=== PATIENT | male | born 1980 | race Caucasian/White ===

== ENCOUNTER 2018-10-18 01:21 | Inpatient (IN) | payer OTHER ==
[~2018-10-18] VITALS: Ht 172.7 cm; Wt 77.3 kg
[2018-10-18 01:40] LABS: BASO # 0.1 x10^3/uL (0.0-0.2); BASO % 1 % (0-3); EOS # 0.2 x10^3/uL (0.0-0.7); EOS % 2 % (0-3); HEMATOCRIT 41.5 % (39.0-53.0); HEMOGLOBIN 14.1 g/dL (13.0-17.5); LYMPH # 3.2 x10^3/uL (1.0-4.8); LYMPH % 29 % (24-48); MEAN CORPUSCULAR HEMOGLOBIN 30 pg (25-35); MEAN CORPUSCULAR HGB CONC 34 g/dL (31-37); MEAN CORPUSCULAR VOLUME 87 fL (79-100); MONO # 0.7 x10^3/uL (0.0-1.1); MONO % 6 % (0-9); NEUT # 6.9 x10^3uL (1.8-7.7); NEUT % 63 % (31-73); PLATELET COUNT 177 x10^3/uL (140-400); RED BLOOD COUNT 4.76 x10^6/uL (4.30-5.70); RED CELL DISTRIBUTION WIDTH 12.9 % (11.5-14.5)
[2018-10-18] MEDS ORDERED: IV NORMAL SALINE 1000ML BAG 1,000 ML IV SCH (01:45)
[2018-10-18] MEDS ORDERED: NITROGLYCERIN SUBLINGUAL 0.4 MG BOTTLE OF 25. SL PRN (01:45)
[2018-10-18 01:57] LABS: ALBUMIN 3.5 g/dL (3.4-5.0); ALBUMIN/GLOBULIN RATIO 0.9 (1.0-1.7); CALCIUM 8.4 mg/dL (8.5-10.1); CREATININE 1.4 mg/dL (0.7-1.3); MAGNESIUM 1.8 mg/dL (1.8-2.4); TOTAL BILIRUBIN 0.3 mg/dL (0.2-1.0); TOTAL PROTEIN 7.2 g/dL (6.4-8.2)
[2018-10-18 02:00] LABS: POTASSIUM 2.8 mmol/L (3.5-5.1)
[2018-10-18] MEDS ORDERED: MORPHINE SULFATE 4 MG/ML VIAL. IV ONE (02:00)
[2018-10-18] MEDS ORDERED: HEPARIN for IV BOLUS 10,000 UNIT/10 ML VIAL. IV PRN (02:30)
[2018-10-18] MEDS ORDERED: HEPARIN for IV BOLUS 10,000 UNIT/10 ML VIAL. IV ONE (02:30)
[2018-10-18] MEDS ORDERED: HEPARIN 25,000UTS/500ML PREMIX 500 ML IV PRN (02:30)
[2018-10-18] MEDS ORDERED: INSULIN REGULAR 100 UNIT/ML 3ML VIAL. IV ONE (02:30)
[2018-10-18] MEDS: POTASSIUM CHLORIDE 10MEQ 100 ML IV SCH ×2 (02:37→03:30)
--- NOTE | 2018-10-18 02:39 | PHYS DOC ---
Past Medical History Past Medical History: GERD, High Cholesterol, Other Additional Past Medical Histor: SVT Past Surgical History: Other Additional Past Surgical Histo: Cardiac Ablation Alcohol Use: Occasionally Drug Use: None Adult General Chief Complaint Chief Complaint: CHEST PAIN HPI HPI Patient is a 38-year-old male who presents via EMS with report of acute onset of chest pain about an hour prior to his arrival. Patient states that initially he felt a hot flash became nauseated and felt his heart rate jumped very high. He states that once the heart rate jumped up he developed chest pain. Pain is located in the left side of his chest and states that at its worst it was a 9 out of 10. Patient was given a total of 2 doses of sublingual nitroglycerin and now he states pain is about a 5 out of 10. He does indicate that he was nauseated but had no vomiting. Patient did have a cardiac ablation back in April. He states that nitroglycerin had improved his pain. Pain is worsened with exertion. Review of Systems Review of Systems Constitutional: Denies fever or chills [] Respiratory: Denies cough or shortness of breath [] Cardiovascular: No additional information not addressed in HPI [] GI: Denies abdominal pain. Complains of nausea without vomiting [] Integument: Denies rash or skin lesions [] Neurologic: Denies headache, focal weakness or sensory changes [] All other systems were reviewed and found to be within normal limits, except as documented in this note. Current Medications Current Medications Current Medications Medications (Trade) Dose Ordered Sig/Chris Start Time Stop Time Status Last Admin Dose Admin Heparin Sodium (Porcine) (Heparin Sodium) 1,950 unit PRN Q6HRS PRN 10/18/18 02:30 Heparin Sodium/ Dextrose 500 ml @ 0 mls/hr CONT PRN 10/18/18 02:30 10/18/18 02:44 18.5 MLS/HR Insulin Human Regular (HumuLIN R VIAL) 5 unit 1X ONCE 10/18/18 02:30 10/18/18 02:31 DC 10/18/18 02:41 5 UNIT Lorazepam (Ativan) 2 mg STK-MED ONCE 10/18/18 02:23 10/18/18 02:24 DC Morphine Sulfate (Morphine Sulfate) 2 mg 1X ONCE 10/18/18 02:00 10/18/18 02:01 DC 10/18/18 01:58 2 MG Nitroglycerin (Nitrostat) 0.4 mg PRN Q5MIN PRN 10/18/18 01:45 10/19/18 01:44 10/18/18 01:58 0.4 MG Potassium Chloride/Water 100 ml @ 100 mls/hr Q1H 10/18/18 02:30 10/18/18 04:29 10/18/18 02:37 100 MLS/HR Sodium Chloride 1,000 ml @ 1,000 mls/hr Q1H 10/18/18 01:45 10/18/18 02:44 DC 10/18/18 01:57 1,000 MLS/HR Allergies Allergies Allergies Coded Allergies Type Severity Reaction Last Updated Verified No Known Drug Allergies 10/18/18 No Physical Exam Physical Exam Constitutional: Well developed, well nourished, no acute distress, non-toxic appearance. [] HENT: Normocephalic, atraumatic, bilateral external ears normal, oropharynx moist, no oral exudates, nose normal. [] Eyes: PERRLA, EOMI, conjunctiva normal, no discharge. [] Neck: Normal range of motion, no tenderness, supple, no stridor. [] Cardiovascular: Regular rate and rhythm[] Lungs & Thorax: Bilateral breath sounds clear to auscultation [] Abdomen: Bowel sounds normal, soft, no tenderness. [] Skin: Warm, dry, no erythema, no rash. [] Extremities: No tenderness, no cyanosis, no clubbing, ROM intact, no edema. [] Neurologic: Alert and oriented X 3, no focal deficits noted. [] Current Patient Data Vital Signs Vital Signs Date Time Temp Pulse Resp B/P (MAP) Pulse Ox O2 Delivery O2 Flow Rate FiO2 10/18/18 01:58 97 Room Air 10/18/18 01:58 113 137/86 10/18/18 01:21 98.6 17 98.6 Lab Values Laboratory Tests Test 10/18/18 01:30 White Blood Count 11.0 x10^3/uL (4.0-11.0) Red Blood Count 4.76 x10^6/uL (4.30-5.70) Hemoglobin 14.1 g/dL (13.0-17.5) Hematocrit 41.5 % (39.0-53.0) Mean Corpuscular Volume 87 fL (79-100) Mean Corpuscular Hemoglobin 30 pg (25-35) Mean Corpuscular Hemoglobin Concent 34 g/dL (31-37) Red Cell Distribution Width 12.9 % (11.5-14.5) Platelet Count 177 x10^3/uL (140-400) Neutrophils (%) (Auto) 63 % (31-73) Lymphocytes (%) (Auto) 29 % (24-48) Monocytes (%) (Auto) 6 % (0-9) Eosinophils (%) (Auto) 2 % (0-3) Basophils (%) (Auto) 1 % (0-3) Neutrophils # (Auto) 6.9 x10^3uL (1.8-7.7) Lymphocytes # (Auto) 3.2 x10^3/uL (1.0-4.8) Monocytes # (Auto) 0.7 x10^3/uL (0.0-1.1) Eosinophils # (Auto) 0.2 x10^3/uL (0.0-0.7) Basophils # (Auto) 0.1 x10^3/uL (0.0-0.2) D-Dimer (Alina) < 0.27 ug/mlFEU Sodium Level 139 mmol/L (136-145) Potassium Level 2.8 mmol/L (3.5-5.1) *L Chloride Level 102 mmol/L (98-107) Carbon Dioxide Level 25 mmol/L (21-32) Anion Gap 12 (6-14) Blood Urea Nitrogen 19 mg/dL (8-26) Creatinine 1.4 mg/dL (0.7-1.3) H Estimated GFR (Cockcroft-Gault) 57.0 BUN/Creatinine Ratio 14 (6-20) Glucose Level 315 mg/dL (70-99) H Calcium Level 8.4 mg/dL (8.5-10.1) L Magnesium Level 1.8 mg/dL (1.8-2.4) Total Bilirubin 0.3 mg/dL (0.2-1.0) Aspartate Amino Transferase (AST) 22 U/L (15-37) Alanine Aminotransferase (ALT) 53 U/L (16-63) Alkaline Phosphatase 68 U/L (46-116) Troponin I Quantitative < 0.017 ng/mL (0.000-0.055) QK-Mek-D-Type Natriuretic Peptide 11 pg/mL (0-124) Total Protein 7.2 g/dL (6.4-8.2) Albumin 3.5 g/dL (3.4-5.0) Albumin/Globulin Ratio 0.9 (1.0-1.7) L Laboratory Tests 10/18/18 01:30 Laboratory Tests 10/18/18 01:30 EKG EKG [] Interpretation Time: EKG demonstrates sinus tachycardia with rate of 119. There is right bundle- branch block and ST abnormality/depression in leads V1 through V5. Radiology/Procedures Radiology/Procedures [] Impressions: Chest x-ray demonstrates no acute process. Course & Med Decision Making Course & Med Decision Making Pertinent Labs and Imaging studies reviewed. (See chart for details) Patient's case discussed with Dr. Mcclellan and he has reviewed EKG. He agrees with admission of patient. He also agrees with treatment with heparin protocol. He will see patient in the morning. Dragon Disclaimer Dragon Disclaimer This electronic medical record was generated, in whole or in part, using a voice recognition dictation system. Departure Departure Impression: Primary Impression: Chest pain Disposition: ADMITTED INPATIENT Admitting Physician: Jey Ramirez Condition: IMPROVED Referrals: NO PCP (PCP) Problem Qualifiers Primary Impression: Chest pain Chest pain type: unspecified Qualified Codes: R07.9 - Chest pain, unspecified ZANDRA TERRAZAS Jr. DO Oct 18, 2018 02:39
[2018-10-18] MEDS ORDERED: ONDANSETRON PF 4 MG/2 ML VIAL. IV PRN (02:45)
[2018-10-18] MEDS ORDERED: MORPHINE SULFATE 4 MG/ML VIAL. IV PRN (02:45)
[2018-10-18] MEDS: IV NORMAL SALINE 1000ML BAG 1,000 ML IV SCH ×2 (02:45→09:25)
[2018-10-18] MEDS ORDERED: IV NORMAL SALINE 500ML BAG 500 ML IV ONE (03:15)
[2018-10-18 03:40] VITALS: BP 112/64
[2018-10-18] MEDS ORDERED: ATOR20TA58 PO (04:07)
[2018-10-18] MEDS ORDERED: OMEP40CA5 PO (04:07)
[2018-10-18 07:00] VITALS: BP 126/68
--- NOTE | 2018-10-18 07:45 | RAD ---
PROCEDURE: PORTABLE CHEST 1V CLINICAL INDICATION: soa, chest pain COMPARISON: None FINDINGS: Heart is normal in size. Prominent bilateral bronchovascular markings are seen. No focal consolidation. No pneumothorax or pleural effusion. Visualized bony thorax is within normal limits. IMPRESSION: Mild Pulmonary vascular congestion or bronchitis. Electronically signed by: José Miguel Bea DO (10/18/2018 7:42 AM) [facility]
[2018-10-18 08:11] LABS: CALCIUM 8.1 mg/dL (8.5-10.1); GFR 84.1
--- NOTE | 2018-10-18 08:40 | EKG ---
[facility] [address] [place] [address] Test Date: 2018-10-18 Test Time: 01:27:07 Pat Name: RICHARD WHITTAKER Department: Room: 260 1 Gender: M Senior Reliability Engineer: : 1980 Requested By: ZANDRA TERRAZAS Order Number: [id number] Reading MD: Edgard Mcclellan MD Measurements Intervals [place] Rate: 118 P: -52 IN: 102 QRS: 23 QRSD: 148 T: 24 QT: 340 QTc: 478 Interpretive Statements SINUS TACHYCARDIA RIGHT BUNDLE BRANCH BLOCK RVH WITH REPOLARIZATION ABNORMALITY Electronically Signed On 10-18-2018 17:31:34 CDT by Edgard Mcclellan MD
[2018-10-18 09:15] LABS: CHOLESTEROL/HDL RATIO 3.2
--- NOTE | 2018-10-18 09:15 | PDOC2 ---
CARDIAC CONSULT DATE OF CONSULT Date of Consult DATE: 10/18/18 TIME: 09:14 REASON FOR CONSULT Reason for Consult: Chest pain REFERRING PHYSICIAN Referring Physician: Dr. Forrest SOURCE Source: Chart review, Patient HISTORY OF PRESENT ILLNESS HISTORY OF PRESENT ILLNESS This is a 38 yo male, with a history of PSVT s/p ablation at in March of last year by Dr. Robertson, who presented secondary to chest pressure and palpitations/elevated heart rate. Patient reports he was sitting playing video games around 11pm last night. Had a sudden onset of felling flush and felt heart beating strong and fast. When this has occurred in the past, has been able to control symptoms with breathing. Last night, palpitations/symptoms persisted began to have nausea with subsequent vomiting. Had pressure in his central chest and was diaphoretic. Slightly short of breath. HR on his watch was noted at 160. Patient decided to come to the ED as he was unable to get symptoms to resolved. Upon arrival, symptoms seemed to be subsiding. EKG upon arrival shows ST with RBBB adn LVH. No significant acute changes per review of prior EKG 12/01/2017 at . records reviewed. 12/18/17 Echo LVEF 55% Normal LV size, wall thickness and function. No regional wall motion abnormalities. RV size and function are normal. Normal chamber and dimensions Normal valve structures; no significant valvular stenosis or regurgitation. 04/04/18 Treadmill stress echo Negative for ischemia Patient was previously on metoprolol for rate control, but this was discontinued following ablation 04/11/2018. PAST MEDICAL HISTORY Cardiovascular: Hyperlipidemia, Other (PSVT s/p ablation) Pulmonary: No pertinent hx CENTRAL NERVOUS SYSTEM: Other (no pertinent positives) GI: GERD Heme/Onc: No pertinent hx Hepatobiliary: No pertinent hx Psych: No pertinent hx Musculoskeletal: Other Rheumatologic: No pertinent hx Infectious disease: No pertinent hx ENT: No pertinent hx Renal/: No pertinent hx Endocrine: No pertinent hx Dermatology: No pertinent hx PAST SURGICAL HISTORY Past Surgical History: Other (cardiac ablation ) FAMILY HISTORY Family History: Diabetes SOCIAL HISTORY Smoke: No ALCOHOL: social Drugs: None Lives: with Family CURRENT MEDICATIONS CURRENT MEDICATIONS Current Medications Medications (Trade) Dose Ordered Sig/Chris Route PRN Reason Start Time Stop Time Status Last Admin Dose Admin Nitroglycerin (Nitrostat) 0.4 mg PRN Q5MIN PRN SL CP RATING > 1/10 10/18/18 01:45 10/19/18 01:44 10/18/18 01:58 Morphine Sulfate (Morphine Sulfate) 2 mg 1X ONCE IV 10/18/18 02:00 10/18/18 02:01 DC 10/18/18 01:58 Sodium Chloride 1,000 ml @ 1,000 mls/hr Q1H IV 10/18/18 01:45 10/18/18 02:44 DC 10/18/18 01:57 Potassium Chloride/Water 100 ml @ 100 mls/hr Q1H IV 10/18/18 02:30 10/18/18 04:29 DC 10/18/18 03:30 Insulin Human Regular (HumuLIN R VIAL) 5 unit 1X ONCE IV 10/18/18 02:30 10/18/18 02:31 DC 10/18/18 02:41 Lorazepam (Ativan) 1 mg 1X ONCE IV 10/18/18 02:30 10/18/18 02:31 DC 10/18/18 02:38 Heparin Sodium (Porcine) (Heparin Sodium) 4,000 unit 1X ONCE IV 10/18/18 02:30 10/18/18 02:31 DC 10/18/18 02:41 Heparin Sodium/ Dextrose 500 ml @ 0 mls/hr CONT PRN IV SEE I/O RECORD 10/18/18 02:30 10/18/18 02:44 Sodium Chloride 1,000 ml @ 150 mls/hr Q6H40M IV 10/18/18 02:45 10/19/18 02:44 10/18/18 02:45 Sodium Chloride 500 ml @ 500 mls/hr 1X ONCE IV 10/18/18 03:15 10/18/18 04:14 DC 10/18/18 02:37 ALLERGIES ALLERGIES: Coded Allergies: No Known Drug Allergies (Unverified , 10/18/18) ROS Review of System 14 point ROS conducted with pertinent positives noted above in HPI. PHYSICAL EXAM General: Alert, Oriented X3, Cooperative, No acute distress HEENT: Atraumatic, Mucous membr. moist/pink Lungs: Clear to auscultation, Normal air movement Heart: Regular rate, Normal S1, Normal S2 Abdomen: Soft, No tenderness Extremities: No edema, Normal pulses Skin: No significant lesion Neuro: Normal speech, Sensation intact Psych/Mental Status: Mental status NL, Mood NL MUSCULOSKELETAL: No deformity VITALS VITALS Vital Signs Date Time Temp Pulse Resp B/P (MAP) Pulse Ox O2 Delivery O2 Flow Rate FiO2 10/18/18 07:00 98.3 75 18 126/68 (87) 97 Room Air 98.3 LABS Lab: Laboratory Tests Test 10/18/18 01:30 10/18/18 07:45 White Blood Count 11.0 x10^3/uL (4.0-11.0) Red Blood Count 4.76 x10^6/uL (4.30-5.70) Hemoglobin 14.1 g/dL (13.0-17.5) Hematocrit 41.5 % (39.0-53.0) Mean Corpuscular Volume 87 fL (79-100) Mean Corpuscular Hemoglobin 30 pg (25-35) Mean Corpuscular Hemoglobin Concent 34 g/dL (31-37) Red Cell Distribution Width 12.9 % (11.5-14.5) Platelet Count 177 x10^3/uL (140-400) Neutrophils (%) (Auto) 63 % (31-73) Lymphocytes (%) (Auto) 29 % (24-48) Monocytes (%) (Auto) 6 % (0-9) Eosinophils (%) (Auto) 2 % (0-3) Basophils (%) (Auto) 1 % (0-3) Neutrophils # (Auto) 6.9 x10^3uL (1.8-7.7) Lymphocytes # (Auto) 3.2 x10^3/uL (1.0-4.8) Monocytes # (Auto) 0.7 x10^3/uL (0.0-1.1) Eosinophils # (Auto) 0.2 x10^3/uL (0.0-0.7) Basophils # (Auto) 0.1 x10^3/uL (0.0-0.2) D-Dimer (Alina) < 0.27 ug/mlFEU Sodium Level 139 mmol/L (136-145) 143 mmol/L (136-145) Potassium Level 2.8 mmol/L (3.5-5.1) 4.0 mmol/L (3.5-5.1) Chloride Level 102 mmol/L (98-107) 108 mmol/L (98-107) Carbon Dioxide Level 25 mmol/L (21-32) 25 mmol/L (21-32) Anion Gap 12 (6-14) 10 (6-14) Blood Urea Nitrogen 19 mg/dL (8-26) 12 mg/dL (8-26) Creatinine 1.4 mg/dL (0.7-1.3) 1.0 mg/dL (0.7-1.3) Estimated GFR (Cockcroft-Gault) 57.0 84.1 BUN/Creatinine Ratio 14 (6-20) Glucose Level 315 mg/dL (70-99) 111 mg/dL (70-99) Calcium Level 8.4 mg/dL (8.5-10.1) 8.1 mg/dL (8.5-10.1) Magnesium Level 1.8 mg/dL (1.8-2.4) Total Bilirubin 0.3 mg/dL (0.2-1.0) Aspartate Amino Transf (AST/SGOT) 22 U/L (15-37) Alanine Aminotransferase (ALT/SGPT) 53 U/L (16-63) Alkaline Phosphatase 68 U/L (46-116) Troponin I Quantitative < 0.017 ng/mL (0.000-0.055) 0.018 ng/mL (0.000-0.055) OM-Wxh-X-Type Natriuretic Peptide 11 pg/mL (0-124) Total Protein 7.2 g/dL (6.4-8.2) Albumin 3.5 g/dL (3.4-5.0) Albumin/Globulin Ratio 0.9 (1.0-1.7) Heparin Anti-Xa Act, Unfractionated 0.56 IU/mL (0.30-0.70) Thyroid Stimulating Hormone (TSH) 0.763 uIU/mL (0.358-3.74) ASSESSMENT/PLAN ASSESSMENT/PLAN 1. Chest pain/pressure; troponin series normal- AMI ruled out. EKG ST with RBBB , LVH. Most probably related to #2 2. PSVT s/p ablation 04/11/18. TSH WNL. Has maintained ST/SR since admission 3. RBBB, chronic; underwent treadmill stress echo to 03/2018; no evidence of ischemia. EKG without significant changes by comparison to study 12/01/2017 at 4. Hyperlipidemia; lipids on goal 5. Hypokalemia; replaced 6. JULIANO; resolved in IVFs Recommendations Discontinue heparin gtt Echo to assess LV systolic function Monitor lytes, replace as warranted Monitor telemetry for arrhythmias Add metoprolol for rate control Continue ASA Patient to follow up with EP at [facility] APRN Oct 18, 2018 09:15
--- NOTE | 2018-10-18 10:47 | PDOC1 ---
History and Physical Date of Admission Date of Admission DATE: 10/18/18 TIME: 10:47 Identification/Chief Complaint Chief Complaint SEEN IN ER 38-year-old male who presents via EMS with report of acute onset of chest pain about an hour prior to his arrival. became nauseated and felt his heart rate jumped very high. He states that once the heart rate jumped up he developed chest pain. Pain is located in the left side of his chest and states that at its worst it was a 9 out of 10. Patient was given a total of 2 doses of sublingual nitroglycerin and now he states pain is about a 5 out of 10. 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 Pulmonary: No pertinent hx CENTRAL NERVOUS SYSTEM: Other (no pertinent positives) GI: GERD Heme/Onc: No pertinent hx Hepatobiliary: No pertinent hx Psych: No pertinent hx Musculoskeletal: Other Rheumatologic: No pertinent hx Infectious disease: No pertinent hx ENT: No pertinent hx Renal/: No pertinent hx Endocrine: No pertinent hx Dermatology: No pertinent hx PAST SURGICAL HISTORY Past Surgical History: Other (cardiac ablation ) FAMILY HISTORY Family History: Diabetes SOCIAL HISTORY Smoke: No ALCOHOL: social Drugs: None Lives: with Family Cardiovascular: Hyperlipidemia, Other (PSVT s/p ablation) Pulmonary: No pertinent hx CENTRAL NERVOUS SYSTEM: Other (no pertinent positives) GI: GERD Heme/Onc: No pertinent hx Hepatobiliary: No pertinent hx Psych: No pertinent hx Musculoskeletal: Other Rheumatologic: No pertinent hx Infectious disease: No pertinent hx ENT: No pertinent hx Renal/: No pertinent hx Endocrine: No pertinent hx Dermatology: No pertinent hx Past Surgical History Past Surgical History: Other (cardiac ablation ) Family History Family History: Alcohol Abuse, Diabetes, Hypertension Social History Smoke: No ALCOHOL: heavy (HEAVY ON WEEKENDS) Drugs: None Current Problem List Problem List Problems Medical Problems: (1) Chest pain Status: Acute Current Medications Current Medications Current Medications Nitroglycerin (Nitrostat) 0.4 mg PRN Q5MIN PRN SL CP RATING > 1/10 Last administered on 10/18/18at 01:58; Start 10/18/18 at 01:45; Stop 10/19/18 at 01:44 Morphine Sulfate (Morphine Sulfate) 2 mg 1X ONCE IV Last administered on at 01:58; Start 10/18/18 at 02:00; Stop 10/18/18 at 02:01; Status DC Sodium Chloride 1,000 ml @ 1,000 mls/hr Q1H IV Last administered on 10/18/18at 01:57; Start 10/18/18 at 01:45; Stop 10/18/18 at 02:44; Status DC Potassium Chloride/Water 100 ml @ 100 mls/hr Q1H IV Last administered on at 03:30; Start 10/18/18 at 02:30; Stop 10/18/18 at 04:29; Status DC Insulin Human Regular (HumuLIN R VIAL) 5 unit 1X ONCE IV Last administered on 10/18/18at 02:41; Start 10/18/18 at 02:30; Stop 10/18/18 at 02:31; Status DC Lorazepam (Ativan) 1 mg 1X ONCE IV Last administered on 10/18/18at 02:38; Start 10/18/18 at 02:30; Stop 10/18/18 at 02:31; Status DC Heparin Sodium (Porcine) (Heparin Sodium) 4,000 unit 1X ONCE IV Last administered on 10/18/18at 02:41; Start 10/18/18 at 02:30; Stop 10/18/18 at 10:05 ; Status DC Heparin Sodium/ Dextrose 500 ml @ 0 mls/hr CONT PRN IV SEE I/O RECORD Last administered on 10/18/18at 02:44; Start 10/18/18 at 02:30; Stop 10/18/18 at 10:05 ; Status DC Heparin Sodium (Porcine) (Heparin Sodium) 1,950 unit PRN Q6HRS PRN IV FOR UFH LEVEL LESS THAN 0.2; Start 10/18/18 at 02:30; Stop 10/18/18 at 10:05; Status DC Lorazepam (Ativan) 2 mg STK-MED ONCE .ROUTE ; Start 10/18/18 at 02:23; Stop at 02:24; Status DC Ondansetron HCl (Zofran) 4 mg PRN Q8HRS PRN IV NAUSEA/VOMITING; Start 10/18/18 at 02:45; Stop 10/19/18 at 02:44 Morphine Sulfate (Morphine Sulfate) 4 mg PRN Q2HR PRN IV PAIN; Start 10/18/18 at 02:45; Stop 10/19/18 at 02:44 Sodium Chloride 1,000 ml @ 150 mls/hr Q6H40M IV Last administered on at 02:45; Start 10/18/18 at 02:45; Stop 10/19/18 at 02:44 Sodium Chloride 500 ml @ 500 mls/hr 1X ONCE IV Last administered on at 02:37; Start 10/18/18 at 03:15; Stop 10/18/18 at 04:14; Status DC Metoprolol Succinate (Toprol Xl) 25 mg DAILY PO ; Start 10/18/18 at 11:00 Aspirin (Ecotrin) 81 mg DAILYWBKFT PO ; Start 10/18/18 at 12:00 Active Scripts Active Reported Atorvastatin Calcium 20 Mg Tablet 1 Tab PO DAILY Omeprazole 40 Mg Capsule. 1 Cap PO DAILY Allergies Allergies: Coded Allergies: No Known Drug Allergies (Unverified , 10/18/18) ROS Review of System Review of Systems Review of Systems Constitutional: Denies fever or chills [] Respiratory: Denies cough or shortness of breath [] Cardiovascular: No additional information not addressed in HPI [] GI: Denies abdominal pain. Complains of nausea without vomiting [] Integument: Denies rash or skin lesions [] Neurologic: Denies headache, focal weakness or sensory changes [] 14 PT systems were reviewed and found to be within normal limits, except as documented General: YES: Fatigue PSYCHOLOGICAL ROS: YES: Anxiety Respiratory: No: Cough, Hemoptysis, Orthopnea, Pleuritic Pain, Shortness of breath, SOB with excertion, Sputum Changes, Stridor, Tachypnea, Wheezing, Other Cardiovascular: yes Chest Pain, yes Palpitations Gastrointestinal: Yes Nausea Neurological: No Behavorial Changes, No Bowel/Bladder ControlChng, No Confusion , No Dizziness, No Gait Disturbance, No Headaches, No Impaired Coord/balance, No Memory Loss, No Numbness/Tingling, No Seizures, No Speech Problems, No Tremors, No Visual Changes, No Weakness, No Other Physical Exam Physical Exam Physical Exam Physical Exam Constitutional: Well developed, well nourished, no acute distress, non-toxic appearance. [] HENT: Normocephalic, atraumatic, bilateral external ears normal, oropharynx moist, no oral exudates, nose normal. [] Eyes: PERRLA, EOMI, conjunctiva normal, no discharge. [] Neck: Normal range of motion, no tenderness, supple, no stridor. [] Cardiovascular: Regular rate and rhythm[] Lungs & Thorax: Bilateral breath sounds clear to auscultation [] Abdomen: Bowel sounds normal, soft, no tenderness. [] Skin: Warm, dry, no erythema, no rash. [] Extremities: No tenderness, no cyanosis, no clubbing, ROM intact, no edema. [] Neurologic: Alert and oriented X 3, no focal deficits noted. [] General: Alert, Oriented X3, Cooperative, mild distress HEENT: EOMI, Mucous membr. moist/pink Lungs: Clear to auscultation, Normal air movement Heart: S1S2 Abdomen: Soft, No tenderness Neuro: Normal speech, Cranial nerves 3-12 NL Psych/Mental Status: Mental status NL, Mood NL Vitals Vitals Vital Signs Date Time Temp Pulse Resp B/P (MAP) Pulse Ox O2 Delivery O2 Flow Rate FiO2 10/18/18 07:00 98.3 75 18 126/68 (87) 97 Room Air 98.3 Labs Labs Laboratory Tests Test 10/18/18 01:30 10/18/18 07:45 White Blood Count 11.0 x10^3/uL (4.0-11.0) Red Blood Count 4.76 x10^6/uL (4.30-5.70) Hemoglobin 14.1 g/dL (13.0-17.5) Hematocrit 41.5 % (39.0-53.0) Mean Corpuscular Volume 87 fL (79-100) Mean Corpuscular Hemoglobin 30 pg (25-35) Mean Corpuscular Hemoglobin Concent 34 g/dL (31-37) Red Cell Distribution Width 12.9 % (11.5-14.5) Platelet Count 177 x10^3/uL (140-400) Neutrophils (%) (Auto) 63 % (31-73) Lymphocytes (%) (Auto) 29 % (24-48) Monocytes (%) (Auto) 6 % (0-9) Eosinophils (%) (Auto) 2 % (0-3) Basophils (%) (Auto) 1 % (0-3) Neutrophils # (Auto) 6.9 x10^3uL (1.8-7.7) Lymphocytes # (Auto) 3.2 x10^3/uL (1.0-4.8) Monocytes # (Auto) 0.7 x10^3/uL (0.0-1.1) Eosinophils # (Auto) 0.2 x10^3/uL (0.0-0.7) Basophils # (Auto) 0.1 x10^3/uL (0.0-0.2) D-Dimer (Alina) < 0.27 ug/mlFEU Sodium Level 139 mmol/L (136-145) 143 mmol/L (136-145) Potassium Level 2.8 mmol/L (3.5-5.1) 4.0 mmol/L (3.5-5.1) Chloride Level 102 mmol/L (98-107) 108 mmol/L (98-107) Carbon Dioxide Level 25 mmol/L (21-32) 25 mmol/L (21-32) Anion Gap 12 (6-14) 10 (6-14) Blood Urea Nitrogen 19 mg/dL (8-26) 12 mg/dL (8-26) Creatinine 1.4 mg/dL (0.7-1.3) 1.0 mg/dL (0.7-1.3) Estimated GFR (Cockcroft-Gault) 57.0 84.1 BUN/Creatinine Ratio 14 (6-20) Glucose Level 315 mg/dL (70-99) 111 mg/dL (70-99) Calcium Level 8.4 mg/dL (8.5-10.1) 8.1 mg/dL (8.5-10.1) Magnesium Level 1.8 mg/dL (1.8-2.4) Total Bilirubin 0.3 mg/dL (0.2-1.0) Aspartate Amino Transf (AST/SGOT) 22 U/L (15-37) Alanine Aminotransferase (ALT/SGPT) 53 U/L (16-63) Alkaline Phosphatase 68 U/L (46-116) Troponin I Quantitative < 0.017 ng/mL (0.000-0.055) 0.018 ng/mL (0.000-0.055) SE-Xec-B-Type Natriuretic Peptide 11 pg/mL (0-124) Total Protein 7.2 g/dL (6.4-8.2) Albumin 3.5 g/dL (3.4-5.0) Albumin/Globulin Ratio 0.9 (1.0-1.7) Heparin Anti-Xa Act, Unfractionated 0.56 IU/mL (0.30-0.70) Triglycerides Level 84 mg/dL (0-150) Cholesterol Level 127 mg/dL (0-200) LDL Cholesterol, Calculated 70 mg/dL (0-100) VLDL Cholesterol, Calculated 17 mg/dL (0-40) Non-HDL Cholesterol Calculated 87 mg/dL (0-129) HDL Cholesterol 40 mg/dL (40-60) Cholesterol/HDL Ratio 3.2 Thyroid Stimulating Hormone (TSH) 0.763 uIU/mL (0.358-3.74) Laboratory Tests Test 10/18/18 01:30 10/18/18 07:45 White Blood Count 11.0 x10^3/uL (4.0-11.0) Red Blood Count 4.76 x10^6/uL (4.30-5.70) Hemoglobin 14.1 g/dL (13.0-17.5) Hematocrit 41.5 % (39.0-53.0) Mean Corpuscular Volume 87 fL (79-100) Mean Corpuscular Hemoglobin 30 pg (25-35) Mean Corpuscular Hemoglobin Concent 34 g/dL (31-37) Red Cell Distribution Width 12.9 % (11.5-14.5) Platelet Count 177 x10^3/uL (140-400) Neutrophils (%) (Auto) 63 % (31-73) Lymphocytes (%) (Auto) 29 % (24-48) Monocytes (%) (Auto) 6 % (0-9) Eosinophils (%) (Auto) 2 % (0-3) Basophils (%) (Auto) 1 % (0-3) Neutrophils # (Auto) 6.9 x10^3uL (1.8-7.7) Lymphocytes # (Auto) 3.2 x10^3/uL (1.0-4.8) Monocytes # (Auto) 0.7 x10^3/uL (0.0-1.1) Eosinophils # (Auto) 0.2 x10^3/uL (0.0-0.7) Basophils # (Auto) 0.1 x10^3/uL (0.0-0.2) D-Dimer (Alina) < 0.27 ug/mlFEU Sodium Level 139 mmol/L (136-145) 143 mmol/L (136-145) Potassium Level 2.8 mmol/L (3.5-5.1) 4.0 mmol/L (3.5-5.1) Chloride Level 102 mmol/L (98-107) 108 mmol/L (98-107) Carbon Dioxide Level 25 mmol/L (21-32) 25 mmol/L (21-32) Anion Gap 12 (6-14) 10 (6-14) Blood Urea Nitrogen 19 mg/dL (8-26) 12 mg/dL (8-26) Creatinine 1.4 mg/dL (0.7-1.3) 1.0 mg/dL (0.7-1.3) Estimated GFR (Cockcroft-Gault) 57.0 84.1 BUN/Creatinine Ratio 14 (6-20) Glucose Level 315 mg/dL (70-99) 111 mg/dL (70-99) Calcium Level 8.4 mg/dL (8.5-10.1) 8.1 mg/dL (8.5-10.1) Magnesium Level 1.8 mg/dL (1.8-2.4) Total Bilirubin 0.3 mg/dL (0.2-1.0) Aspartate Amino Transf (AST/SGOT) 22 U/L (15-37) Alanine Aminotransferase (ALT/SGPT) 53 U/L (16-63) Alkaline Phosphatase 68 U/L (46-116) Troponin I Quantitative < 0.017 ng/mL (0.000-0.055) 0.018 ng/mL (0.000-0.055) NT-Kwu-P-Type Natriuretic Peptide 11 pg/mL (0-124) Total Protein 7.2 g/dL (6.4-8.2) Albumin 3.5 g/dL (3.4-5.0) Albumin/Globulin Ratio 0.9 (1.0-1.7) Heparin Anti-Xa Act, Unfractionated 0.56 IU/mL (0.30-0.70) Triglycerides Level 84 mg/dL (0-150) Cholesterol Level 127 mg/dL (0-200) LDL Cholesterol, Calculated 70 mg/dL (0-100) VLDL Cholesterol, Calculated 17 mg/dL (0-40) Non-HDL Cholesterol Calculated 87 mg/dL (0-129) HDL Cholesterol 40 mg/dL (40-60) Cholesterol/HDL Ratio 3.2 Thyroid Stimulating Hormone (TSH) 0.763 uIU/mL (0.358-3.74) Images Images Tricuspid Valve TR P. Velocity 233cm/s RAP ESTIMATE 3mmHg TR Peak Gr. 22mmHg RVSP 25mmHg LEFT VENTRICLE The left ventricle is normal size. Proximal septal thickening is noted. The left ventricular systolic function is low normal. EF 50% Septal motion suggestive of conduction defect. The left ventricular diastolic function and filling is normal for age. RIGHT VENTRICLE The right ventricle is mildly dilated. There is normal right ventricular wall thickness. The right ventricular systolic function is normal. ATRIA The left atrium size is normal. The right atrium size is normal. The interatrial septum is intact with no evidence for an atrial septal defect or patent foramen ovale as noted on 2-D or Doppler imaging. AORTIC VALVE The aortic valve is trileaflet. Doppler and Color Flow revealed no significant aortic regurgitation. There is no significant aortic valvular stenosis. There is no aortic valvular vegetation. MITRAL VALVE The mitral valve is normal in structure and function. There is no evidence of mitral valve prolapse. There is no mitral valve stenosis. Doppler and Color- flow revealed trace mitral regurgitation. TRICUSPID VALVE The tricuspid valve is normal in structure and function. Doppler and Color Flow revealed trace tricuspid regurgitation. The PA pressure was estimated at 25 mmHg. There is no tricuspid valve prolapse or vegetation. There is no tricuspid valve stenosis. PULMONIC VALVE Doppler and Color Flow revealed no pulmonic valvular regurgitation. There is no pulmonic valvular stenosis. GREAT VESSELS The aortic root is normal in size. The ascending aorta is normal in size. The IVC is normal in size and collapses >50% with inspiration. PERICARDIAL EFFUSION There is no evidence of significant pericardial effusion. Critical Notification Critical Value: No <Conclusion> The left ventricular systolic function is low normal. EF 50% Septal motion suggestive of conduction defect. The right ventricle is mildly dilated. Signed by : Edgard Mcclellan, Electronically Approved : 10/18/2018 11:48:57 PROCEDURE: PORTABLE CHEST 1V CLINICAL INDICATION: soa, chest pain COMPARISON: None FINDINGS: Heart is normal in size. Prominent bilateral bronchovascular markings are seen. No focal consolidation. No pneumothorax or pleural effusion. Visualized bony thorax is within normal limits. IMPRESSION: Mild Pulmonary vascular congestion or bronchitis. Electronically signed by: José Miguel Gonzalez DO (10/18/2018 7:42 AM) [facility] DICTATED and SIGNED BY: JOSÉ MIGUEL GONZALEZ DO VTE Prophylaxis Ordered VTE Prophylaxis Devices: Yes VTE Pharmacological Prophylaxi: Yes Assessment/Plan Assessment/Plan IMPRESSION: Pulmonary vascular congestion or bronchitis. The left ventricular systolic function is low normal. EF 50% Septal motion suggestive of conduction defect. The right ventricle is mildly dilated. POST ablation 04/11/2018. [facility] ALCOHOL ABUSE suspected drink 4-5 beers on weekend nights plus whiskey PLAN [facility] ADMIT CARDIOLOGY CONSULT ECHO TREND TROPONIN I OLD RECORDS [facility], NEED METOPROLOL XL 25 MG PO DAILY URINE DRUG SCREEN ALCOHOL WITHDRAWAL PREVENTION DVT PROPHYLAXIS D/W FAMILY IN ROOM 63 min pt exam, chart review > 50% of time spent with exam, chart review, pt care coordination BOSTON MONTERO MD Oct 18, 2018 10:47
[2018-10-18 11:00] VITALS: BP 128/66
[2018-10-18] MEDS: ASPIRIN ENTERIC COATED 81 MG TABLET.DR. PO SCH (11:24)
[2018-10-18] MEDS: METOPROLOL SUCC 24HR ER 25 MG TAB.ER.24H. PO SCH (11:24)
--- NOTE | 2018-10-18 11:49 | CARD ---
MR#: [id number] Date of Study: 10/18/2018 Ordering Physician: NATE ACEVEDO, Referring Physician: BOSTON MONTERO Tech: Melissa Johnson JUANITA APPROVED REPORT EXAM: Two-dimensional and M-mode echocardiogram with Doppler and color Doppler. Other Information Quality : AverageHR: 76bpm Rhythm : NSR INDICATION Chest Pain Surgery/Intervention Ablation 04/2018 2D DIMENSIONS RVDd2.6 (2.9-3.5cm)Left Atrium(2D)2.9 (1.6-4.0cm) IVSd1.2 (0.7-1.1cm)Aortic Root(2D)3.2 (2.0-3.7cm) LVDd4.6 (3.9-5.9cm)LVOT Diameter2.0 (1.8-2.4cm) PWd1.0 (0.7-1.1cm)LVDs2.9 (2.5-4.0cm) FS (%) 38.3 %SV67.9 ml LVEF(%)68.5 (>50%) M-Mode DIMENSIONS Left Atrium(MM)2.82 (2.5-4.0cm)Aortic Root2.92 (2.2-3.7cm) Aortic Valve AoV Peak Osmany.110.5cm/sAoV VTI21.7cm AO Peak GR.4.9mmHgLVOT VTI 17.93cm AO Mean GR.3mmHgAVA (VTI)2.50cm2 Mitral Valve MV E Lqupdtbj066.7cm/sMV DECEL [id number] MV A Thizjndd76.2cm/sE/A Ratio1.8 MV A [id number] TDI Lateral E' P. V13.00cm/sMedial E' P. V12.55cm/s E/Lateral E'7.9E/Medial E'8.2 Tricuspid Valve TR P. Epmtores927cq/sRAP [id number] TR Peak Gr.97gsZvFVHX46buEu LEFT VENTRICLE The left ventricle is normal size. Proximal septal thickening is noted. The left ventricular systolic function is low normal. EF 50% Septal motion suggestive of conduction defect. The left ventricular d iastolic function and filling is normal for age. RIGHT VENTRICLE The right ventricle is mildly dilated. There is normal right ventricular wall thickness. The right ve ntricular systolic function is normal. ATRIA The left atrium size is normal. The right atrium size is normal. The interatrial septum is intact wit h no evidence for an atrial septal defect or patent foramen ovale as noted on 2-D or Doppler imaging. AORTIC VALVE The aortic valve is trileaflet. Doppler and Color Flow revealed no significant aortic regurgitation. There is no significant aortic valvular stenosis. There is no aortic valvular vegetation. MITRAL VALVE The mitral valve is normal in structure and function. There is no evidence of mitral valve prolapse. There is no mitral valve stenosis. Doppler and Color-flow revealed trace mitral regurgitation. TRICUSPID VALVE The tricuspid valve is normal in structure and function. Doppler and Color Flow revealed trace tricus pid regurgitation. The PA pressure was estimated at 25 mmHg. There is no tricuspid valve prolapse or vegetation. There is no tricuspid valve stenosis. PULMONIC VALVE Doppler and Color Flow revealed no pulmonic valvular regurgitation. There is no pulmonic valvular kendall nosis. GREAT VESSELS The aortic root is normal in size. The ascending aorta is normal in size. The IVC is normal in size a nd collapses >50% with inspiration. PERICARDIAL EFFUSION There is no evidence of significant pericardial effusion. Critical Notification Critical Value: No <Conclusion> The left ventricular systolic function is low normal. EF 50% Septal motion suggestive of conduction defect. The right ventricle is mildly dilated. Signed by : Edgard Mcclellan, Electronically Approved : 10/18/2018 11:48:57
--- NOTE | 2018-10-18 12:36 | NUR ---
SS following for discharge planning. SS reviewed pt chart. Pt is from home and is currently on room air. No discharge needs noted at this time. SS will continue to follow for pending discharge needs.
[2018-10-18 15:00] VITALS: BP 135/73
[2018-10-18] MEDS: LORazepam 1 MG TABLET PO SCH ×4 (16:00→22:06)
[2018-10-18 16:19] LABS: ALBUMIN 3.2 g/dL (3.4-5.0); DIRECT BILIRUBIN 0.1 mg/dL (0.0-0.2); TOTAL BILIRUBIN 0.3 mg/dL (0.2-1.0); TOTAL PROTEIN 6.7 g/dL (6.4-8.2)
[2018-10-18 19:35] VITALS: BP 114/67
[2018-10-18 23:06] VITALS: BP 117/65
[2018-10-18 23:12] LABS: HEMOGLOBIN A1C 5.5 % (4.8-5.6)
[2018-10-19 03:25] VITALS: BP 108/66
[2018-10-19] MEDS: LORazepam 1 MG TABLET PO SCH (04:00)
[2018-10-19 04:05] LABS: BASO # 0.1 x10^3/uL (0.0-0.2); BASO % 1 % (0-3); EOS # 0.2 x10^3/uL (0.0-0.7); EOS % 3 % (0-3); HEMATOCRIT 44.4 % (39.0-53.0); LYMPH # 2.2 x10^3/uL (1.0-4.8); LYMPH % 30 % (24-48); MEAN CORPUSCULAR HEMOGLOBIN 30 pg (25-35); MEAN CORPUSCULAR HGB CONC 34 g/dL (31-37); MEAN CORPUSCULAR VOLUME 88 fL (79-100); MONO # 0.6 x10^3/uL (0.0-1.1); MONO % 8 % (0-9); NEUT # 4.4 x10^3uL (1.8-7.7); NEUT % 59 % (31-73); PLATELET COUNT 186 x10^3/uL (140-400); RED BLOOD COUNT 5.03 x10^6/uL (4.30-5.70); RED CELL DISTRIBUTION WIDTH 13.1 % (11.5-14.5); WHITE BLOOD COUNT 7.4 x10^3/uL (4.0-11.0)
[2018-10-19 04:19] LABS: CALCIUM 8.8 mg/dL (8.5-10.1); CREATININE 1.1 mg/dL (0.7-1.3); GFR 75.3
[2018-10-19 07:00] VITALS: BP 105/73
[2018-10-19] MEDS: ASPIRIN ENTERIC COATED 81 MG TABLET.DR. PO SCH (08:13)
[2018-10-19 08:22] VITALS: BP 108/66
[2018-10-19] MEDS: METOPROLOL SUCC 24HR ER 25 MG TAB.ER.24H. PO SCH (08:22)
[2018-10-19] MEDS ORDERED: THIAMINE 100 MG TABLET. PO SCH (09:00)
[2018-10-19] MEDS ORDERED: FOLIC ACID 1 MG TABLET. PO SCH (09:00)
[2018-10-19] MEDS ORDERED: MULTIVITAMIN with MINERAL TABLET. PO SCH (09:00)
[2018-10-19] MEDS ORDERED: METO-239 PO (10:03)
--- NOTE | 2018-10-19 10:13 | PDOC ---
PROGRESS NOTES Chief Complaint Chief Complaint Pulmonary vascular congestion or bronchitis. The left ventricular systolic function is low normal. EF 50% Septal motion suggestive of conduction defect. The right ventricle is mildly dilated. POST ablation for SVT 04/11/2018. [facility] History of Present Illness History of Present Illness Mr. Wesley is a 38 yo male presented with chest pain, troponins and work up negative. Cards following. Patient seen and examined at bedside. He denies alcohol abuse and does not want UDS or banana bag. Patient has no new complaints. Vitals Vitals Vital Signs Date Time Temp Pulse Resp B/P (MAP) Pulse Ox O2 Delivery O2 Flow Rate FiO2 10/19/18 08:22 55 108/66 10/19/18 08:00 Room Air 10/19/18 07:00 97.7 18 95 97.7 Physical Exam General: Alert, Oriented X3, Cooperative, mild distress Heart: Regular rate, Normal S1, Normal S2, No murmurs Lungs: Clear Abdomen: Soft, No tenderness Extremities: No clubbing, No cyanosis, No edema, Normal pulses Skin: No rashes, No significant lesion Labs LABS Laboratory Tests Test 10/18/18 13:52 10/19/18 03:30 Troponin I Quantitative < 0.017 ng/mL (0.000-0.055) White Blood Count 7.4 x10^3/uL (4.0-11.0) Red Blood Count 5.03 x10^6/uL (4.30-5.70) Hemoglobin 15.0 g/dL (13.0-17.5) Hematocrit 44.4 % (39.0-53.0) Mean Corpuscular Volume 88 fL (79-100) Mean Corpuscular Hemoglobin 30 pg (25-35) Mean Corpuscular Hemoglobin Concent 34 g/dL (31-37) Red Cell Distribution Width 13.1 % (11.5-14.5) Platelet Count 186 x10^3/uL (140-400) Neutrophils (%) (Auto) 59 % (31-73) Lymphocytes (%) (Auto) 30 % (24-48) Monocytes (%) (Auto) 8 % (0-9) Eosinophils (%) (Auto) 3 % (0-3) Basophils (%) (Auto) 1 % (0-3) Neutrophils # (Auto) 4.4 x10^3uL (1.8-7.7) Lymphocytes # (Auto) 2.2 x10^3/uL (1.0-4.8) Monocytes # (Auto) 0.6 x10^3/uL (0.0-1.1) Eosinophils # (Auto) 0.2 x10^3/uL (0.0-0.7) Basophils # (Auto) 0.1 x10^3/uL (0.0-0.2) Sodium Level 143 mmol/L (136-145) Potassium Level 4.0 mmol/L (3.5-5.1) Chloride Level 107 mmol/L (98-107) Carbon Dioxide Level 27 mmol/L (21-32) Anion Gap 9 (6-14) Blood Urea Nitrogen 11 mg/dL (8-26) Creatinine 1.1 mg/dL (0.7-1.3) Estimated GFR (Cockcroft-Gault) 75.3 Glucose Level 118 mg/dL (70-99) Calcium Level 8.8 mg/dL (8.5-10.1) Review of Systems Review of Systems Denies chest pain Denies tremors Assessment and Plan Assessmemt and Plan Problems Medical Problems: (1) Chest pain Status: Acute Assessment: Pulmonary vascular congestion or bronchitis. The left ventricular systolic function is low normal. EF 50% Septal motion suggestive of conduction defect. The right ventricle is mildly dilated. POST ablation for SVT 04/11/2018. [facility] Plan: Patient okay to discharge today Follow up with Cards outpatient Return to ED with worsening symptoms Prescribed lortab and metoprolol 12.5mg Follow up with PCP Continue to monitor vitals Appreciate subspecialty input Comment Review of Relevant I have reviewed the following items marce (where applicable) has been applied. Labs Laboratory Tests Test 10/18/18 01:30 10/18/18 07:45 10/18/18 13:52 10/19/18 03:30 White Blood Count 11.0 x10^3/uL (4.0-11.0) 7.4 x10^3/uL (4.0-11.0) Red Blood Count 4.76 x10^6/uL (4.30-5.70) 5.03 x10^6/uL (4.30-5.70) Hemoglobin 14.1 g/dL (13.0-17.5) 15.0 g/dL (13.0-17.5) Hematocrit 41.5 % (39.0-53.0) 44.4 % (39.0-53.0) Mean Corpuscular Volume 87 fL (79-100) 88 fL (79-100) Mean Corpuscular Hemoglobin 30 pg (25-35) 30 pg (25-35) Mean Corpuscular Hemoglobin Concent 34 g/dL (31-37) 34 g/dL (31-37) Red Cell Distribution Width 12.9 % (11.5-14.5) 13.1 % (11.5-14.5) Platelet Count 177 x10^3/uL (140-400) 186 x10^3/uL (140-400) Neutrophils (%) (Auto) 63 % (31-73) 59 % (31-73) Lymphocytes (%) (Auto) 29 % (24-48) 30 % (24-48) Monocytes (%) (Auto) 6 % (0-9) 8 % (0-9) Eosinophils (%) (Auto) 2 % (0-3) 3 % (0-3) Basophils (%) (Auto) 1 % (0-3) 1 % (0-3) Neutrophils # (Auto) 6.9 x10^3uL (1.8-7.7) 4.4 x10^3uL (1.8-7.7) Lymphocytes # (Auto) 3.2 x10^3/uL (1.0-4.8) 2.2 x10^3/uL (1.0-4.8) Monocytes # (Auto) 0.7 x10^3/uL (0.0-1.1) 0.6 x10^3/uL (0.0-1.1) Eosinophils # (Auto) 0.2 x10^3/uL (0.0-0.7) 0.2 x10^3/uL (0.0-0.7) Basophils # (Auto) 0.1 x10^3/uL (0.0-0.2) 0.1 x10^3/uL (0.0-0.2) D-Dimer (Alina) < 0.27 ug/mlFEU Sodium Level 139 mmol/L (136-145) 143 mmol/L (136-145) 143 mmol/L (136-145) Potassium Level 2.8 mmol/L (3.5-5.1) 4.0 mmol/L (3.5-5.1) 4.0 mmol/L (3.5-5.1) Chloride Level 102 mmol/L (98-107) 108 mmol/L (98-107) 107 mmol/L (98-107) Carbon Dioxide Level 25 mmol/L (21-32) 25 mmol/L (21-32) 27 mmol/L (21-32) Anion Gap 12 (6-14) 10 (6-14) 9 (6-14) Blood Urea Nitrogen 19 mg/dL (8-26) 12 mg/dL (8-26) 11 mg/dL (8-26) Creatinine 1.4 mg/dL (0.7-1.3) 1.0 mg/dL (0.7-1.3) 1.1 mg/dL (0.7-1.3) Estimated GFR (Cockcroft-Gault) 57.0 84.1 75.3 BUN/Creatinine Ratio 14 (6-20) Glucose Level 315 mg/dL (70-99) 111 mg/dL (70-99) 118 mg/dL (70-99) Calcium Level 8.4 mg/dL (8.5-10.1) 8.1 mg/dL (8.5-10.1) 8.8 mg/dL (8.5-10.1) Magnesium Level 1.8 mg/dL (1.8-2.4) Total Bilirubin 0.3 mg/dL (0.2-1.0) 0.3 mg/dL (0.2-1.0) Aspartate Amino Transf (AST/SGOT) 22 U/L (15-37) 26 U/L (15-37) Alanine Aminotransferase (ALT/SGPT) 53 U/L (16-63) 44 U/L (16-63) Alkaline Phosphatase 68 U/L (46-116) 62 U/L (46-116) Troponin I Quantitative < 0.017 ng/mL (0.000-0.055) 0.018 ng/mL (0.000-0.055) < 0.017 ng/mL (0.000-0.055) KC-Kyl-B-Type Natriuretic Peptide 11 pg/mL (0-124) Total Protein 7.2 g/dL (6.4-8.2) 6.7 g/dL (6.4-8.2) Albumin 3.5 g/dL (3.4-5.0) 3.2 g/dL (3.4-5.0) Albumin/Globulin Ratio 0.9 (1.0-1.7) Heparin Anti-Xa Act, Unfractionated 0.56 IU/mL (0.30-0.70) Hemoglobin A1c 5.5 % (4.8-5.6) Direct Bilirubin 0.1 mg/dL (0.0-0.2) Triglycerides Level 84 mg/dL (0-150) Cholesterol Level 127 mg/dL (0-200) LDL Cholesterol, Calculated 70 mg/dL (0-100) VLDL Cholesterol, Calculated 17 mg/dL (0-40) Non-HDL Cholesterol Calculated 87 mg/dL (0-129) HDL Cholesterol 40 mg/dL (40-60) Cholesterol/HDL Ratio 3.2 Thyroid Stimulating Hormone (TSH) 0.763 uIU/mL (0.358-3.74) Laboratory Tests Test 10/18/18 13:52 10/19/18 03:30 Troponin I Quantitative < 0.017 ng/mL (0.000-0.055) White Blood Count 7.4 x10^3/uL (4.0-11.0) Red Blood Count 5.03 x10^6/uL (4.30-5.70) Hemoglobin 15.0 g/dL (13.0-17.5) Hematocrit 44.4 % (39.0-53.0) Mean Corpuscular Volume 88 fL (79-100) Mean Corpuscular Hemoglobin 30 pg (25-35) Mean Corpuscular Hemoglobin Concent 34 g/dL (31-37) Red Cell Distribution Width 13.1 % (11.5-14.5) Platelet Count 186 x10^3/uL (140-400) Neutrophils (%) (Auto) 59 % (31-73) Lymphocytes (%) (Auto) 30 % (24-48) Monocytes (%) (Auto) 8 % (0-9) Eosinophils (%) (Auto) 3 % (0-3) Basophils (%) (Auto) 1 % (0-3) Neutrophils # (Auto) 4.4 x10^3uL (1.8-7.7) Lymphocytes # (Auto) 2.2 x10^3/uL (1.0-4.8) Monocytes # (Auto) 0.6 x10^3/uL (0.0-1.1) Eosinophils # (Auto) 0.2 x10^3/uL (0.0-0.7) Basophils # (Auto) 0.1 x10^3/uL (0.0-0.2) Sodium Level 143 mmol/L (136-145) Potassium Level 4.0 mmol/L (3.5-5.1) Chloride Level 107 mmol/L (98-107) Carbon Dioxide Level 27 mmol/L (21-32) Anion Gap 9 (6-14) Blood Urea Nitrogen 11 mg/dL (8-26) Creatinine 1.1 mg/dL (0.7-1.3) Estimated GFR (Cockcroft-Gault) 75.3 Glucose Level 118 mg/dL (70-99) Calcium Level 8.8 mg/dL (8.5-10.1) Medications Current Medications Nitroglycerin (Nitrostat) 0.4 mg PRN Q5MIN PRN SL CP RATING > 1/10 Last administered on 10/18/18 01:58; Start 10/18/18 at 01:45; Stop 10/19/18 at 01:44 ; Status DC Morphine Sulfate (Morphine Sulfate) 2 mg 1X ONCE IV Last administered on 01:58; Start 10/18/18 at 02:00; Stop 10/18/18 at 02:01; Status DC Sodium Chloride 1,000 ml @ 1,000 mls/hr Q1H IV Last administered on 10/18/18 01:57; Start 10/18/18 at 01:45; Stop 10/18/18 at 02:44; Status DC Potassium Chloride/Water 100 ml @ 100 mls/hr Q1H IV Last administered on 03:30; Start 10/18/18 at 02:30; Stop 10/18/18 at 04:29; Status DC Insulin Human Regular (HumuLIN R VIAL) 5 unit 1X ONCE IV Last administered on 10/18/18 02:41; Start 10/18/18 at 02:30; Stop 10/18/18 at 02:31; Status DC Lorazepam (Ativan) 1 mg 1X ONCE IV Last administered on 10/18/18at 02:38; Start 10/18/18 at 02:30; Stop 10/18/18 at 02:31; Status DC Heparin Sodium (Porcine) (Heparin Sodium) 4,000 unit 1X ONCE IV Last administered on 10/18/18at 02:41; Start 10/18/18 at 02:30; Stop 10/18/18 at 10:05 ; Status DC Heparin Sodium/ Dextrose 500 ml @ 0 mls/hr CONT PRN IV SEE I/O RECORD Last administered on 10/18/18at 02:44; Start 10/18/18 at 02:30; Stop 10/18/18 at 10:05 ; Status DC Heparin Sodium (Porcine) (Heparin Sodium) 1,950 unit PRN Q6HRS PRN IV FOR UFH LEVEL LESS THAN 0.2; Start 10/18/18 at 02:30; Stop 10/18/18 at 10:05; Status DC Lorazepam (Ativan) 2 mg STK-MED ONCE .ROUTE ; Start 10/18/18 at 02:23; Stop at 02:24; Status DC Ondansetron HCl (Zofran) 4 mg PRN Q8HRS PRN IV NAUSEA/VOMITING; Start 10/18/18 at 02:45; Stop 10/19/18 at 02:44; Status DC Morphine Sulfate (Morphine Sulfate) 4 mg PRN Q2HR PRN IV PAIN; Start 10/18/18 at 02:45; Stop 10/19/18 at 02:44; Status DC Sodium Chloride 1,000 ml @ 150 mls/hr Q6H40M IV Last administered on at 02:45; Start 10/18/18 at 02:45; Stop 10/18/18 at 11:59; Status DC Sodium Chloride 500 ml @ 500 mls/hr 1X ONCE IV Last administered on at 02:37; Start 10/18/18 at 03:15; Stop 10/18/18 at 04:14; Status DC Metoprolol Succinate (Toprol Xl) 25 mg DAILY PO Last administered on 10/19/18at 08:22; Start 10/18/18 at 11:00 Aspirin (Ecotrin) 81 mg DAILYWBKFT PO Last administered on 10/19/18at 08:13; Start 10/18/18 at 12:00 Multivitamins (Thera M Plus) 1 tab DAILY PO ; Start 10/19/18 at 09:00 Folic Acid (Folic Acid) 1 mg DAILY PO ; Start 10/19/18 at 09:00 Thiamine Mononitrate (Vitamin B-1) 100 mg DAILY PO ; Start 10/19/18 at 09:00 Lorazepam (Ativan) 2 mg Q6H PO Last administered on 10/18/18at 22:06; Start at 16:00; Stop 10/19/18 at 22:01 Active Scripts Active Reported Metoprolol Succinate ( Xl ) (Metoprolol Succinate) 25 Mg Tab.er.24h 1 Tab PO DAILY Atorvastatin Calcium 20 Mg Tablet 1 Tab PO DAILY Omeprazole 40 Mg Capsule.dr 1 Cap PO DAILY Vitals/I & O Vital Sign - Last 24 Hours 10/18/18 10/18/18 10/18/18 10/18/18 11:00 11:24 15:00 19:35 Temp 98.2 98.0 98.1 98.2 98.0 98.1 Pulse 71 64 77 95 Resp 18 18 20 B/P (MAP) 128/66 (86) 128/66 135/73 (93) 114/67 (83) Pulse Ox 96 98 94 O2 Delivery Room Air Room Air Room Air 10/18/18 10/18/18 10/19/18 10/19/18 20:00 23:06 03:25 07:00 Temp 97.7 97.8 97.7 97.7 97.8 97.7 Pulse 61 55 69 Resp 18 18 18 B/P (MAP) 117/65 (82) 108/66 (80) 105/73 (84) Pulse Ox 97 96 95 O2 Delivery Room Air Room Air Room Air Room Air 10/19/18 10/19/18 08:00 08:22 Pulse 55 B/P (MAP) 108/66 O2 Delivery Room Air Intake and Output 10/18/18 10/18/18 10/19/18 15:00 23:00 07:00 Intake Total 0 ml 390 ml 300 ml Output Total 1000 ml Balance -1000 ml 390 ml 300 ml ORA BOYCE III DO Oct 19, 2018 10:13
--- NOTE | 2018-10-19 10:20 | NUR ---
PATIENT DISCHARGED TO HOME. DISCHARGE INSTRUCTIONS GIVEN. PIV AND HEART MONITOR REMOVED. ESCORTED PATIENT TO FRONT ENTRANCE INTO A PRIVATE VEHICLE.
--- NOTE | 2018-10-19 10:28 | DS ---
DATE OF DISCHARGE: 10/19/2018 ADMISSION DIAGNOSES: Chest pain, anxiety and palpitations. DISCHARGE DIAGNOSES: Resolving atypical chest pain, history of cardiac ablation last year. CONSULTS: Cardiology. PROCEDURES: None. HOSPITAL COURSE: The patient is a pleasant 38-year-old male who presented with chest pain. He has a history of a cardiac ablation because he was having chronic SVT. He thought he came off of his beta-eliezer since he had the ablation and he threw them in the trash. New, he feels like he is probably having some breakthrough SVT periodically. He was admitted. We consulted Cardiology. Serial enzymes were negative other than a slight bump of 0.018 on one of them. This morning, I saw him and examined him. His heart tones were normal. His lungs were clear. I discussed the case with his mom as well. Overall, he looks great. We plan to discharge him with close outpatient followup. I discussed the case with Dr. Pozo as well. DISPOSITION: Home. ACTIVITY: As tolerated. DIET: Cardiac. MEDICATIONS: Please see the MRAD. TOTAL TIME: 32 minutes. ORA BOYCE DO DR: [email or web address] JOB#: [id number] / [id number]
== END 2018-10-19 10:22 | disposition home or self-care (01) | DRG 313 ==
LOC: ER 01:21 → 2 SOUTH 02:37
PROVIDERS: ADMIT Family Medicine; ATTEND Family Medicine
DX: R07.89 Other chest pain (principal); N17.9 Acute kidney failure, unspecified; I47.1 Supraventricular tachycardia; E78.00 Pure hypercholesterolemia, unspecified; E78.5 Hyperlipidemia, unspecified; E87.6 Hypokalemia; F41.9 Anxiety disorder, unspecified; J40 Bronchitis, not specified as acute or chronic; K21.9 Gastro-esophageal reflux disease without esophagitis; Z82.49 Family history of ischemic heart disease and other diseases of the circulatory system; Z83.3 Family history of diabetes mellitus; Z81.1 Family history of alcohol abuse and dependence
CPT/HCPCS: 36415; 71045; 80048; 80053; 80061; 80076; 83036; 83735; 83880; 84443; 84484; 85025; 85379; 85520; 93005; 93306; 96361; 96374; 96375; J1644; J1815; J2060; J2270; J3480; J7030; J7040; 99285-25